=== PATIENT | male | born 1965 | race Two or more races ===

== ENCOUNTER 2016-07-13 17:03 | Emergency (ER) | payer MEDICAID, OTHER ==
[~2016-07-13] VITALS: Ht 157.5 cm; Wt 96.5 kg
[2016-07-13 17:44] VITALS: Ht 157.5 cm; Wt 96.5 kg
[2016-07-13] MEDS ORDERED: PRED20TA PO (17:55)
[2016-07-13] MEDS ORDERED: ALBU8.5H3 INH (17:55)
[2016-07-13] MEDS ORDERED: UDROBDM PO (17:55)
--- NOTE | 2016-07-13 17:57 | ERD ---
ER Documentation Chief Complaint Date/Time DATE: 07/13/16 TIME: 17:56 Chief Complaint COUGH X 3 DAYS HPI 51-year-old male comes in with a cough, sore throat 3 days. He has a history of asthma and does not require medications regularly. He has not had any fever , chills, shortness of breath. ROS All systems reviewed and are negative except as per history of present illness. Medications Home Meds Active Scripts Guaifenesin-Dextromethorphan* (Robitussin* DM) 100MG/10MG/5ML Syrup, 5 ML PO Q4H Y for COUGH, #4 OZ Prov:ASHOK FALK PA-C 07/13/16 Albuterol Sulfate* (Proair HFA*) 8.5 Gm Hfa.aer.ad, 2 PUFF INH Q4, #1 INHALER Prov:ASHOK FALK PA-C 07/13/16 Prednisone* (Prednisone*) 20 Mg Tab, 40 MG PO DAILY for 5 Days, TAB Prov:ASHOK FALK PA-C 07/13/16 Allergies Allergies: Coded Allergies: Penicillins (Verified Allergy, Unknown, 07/13/16) PMhx/Soc Medical and Surgical Hx: pt denies Surgical Hx Hx Respiratory Disorders: Yes (Asthma) Hx Substance Use: No Hx Tobacco Use: No Smoking Status: Current every day smoker Physical Exam Vitals Vital Signs Date Time Temp Pulse Resp B/P Pulse Ox O2 Delivery O2 Flow Rate FiO2 07/13/16 17:44 98.7 78 18 140/74 99 Physical Exam General: Well-developed, well-nourished. The patient appears in no acute distress. HEENT: Head is normocephalic, atraumatic. No scleral icterus. Pupils are equal , round, and reactive. Oral mucous membranes are moist. No pharyngeal erythema. Neck: Supple. Nontender. Lungs: Clear to auscultation. Normal air movement. Heart: Regular rate and rhythm. S1 and S2 are normal. No murmurs, gallops, or rubs. Abdomen: Soft, nontender, nondistended. Bowel sounds are normoactive. Extremities: No clubbing or cyanosis. Normal pulses. Moving extremities x 4. No weakness. Neurologic: Alert and oriented 3. No focal deficits. Skin: Normal turgor. No rash or lesions. Procedures/MDM The patient is a 51-year-old male who comes in with an acute upper respiratory infection, presumed viral. No active asthma symptoms. The patient has a differential diagnosis of a viral upper respiratory infection, bacterial upper respiratory infection, bronchitis, pneumonia, pharyngitis, laryngitis, epiglottitis, croup, pneumonia. Patient has a normal pulmonary examination, clear breath sounds, normal pulse oximetry, with no corrective measures needed at this time. Fluids, rest, antipyretics were encouraged. Smoking Cessation Therapy: Pt. was lectured for greater than 3 minutes on the health risks of continued smoking and the benefits of cessation. Departure Diagnosis: Primary Impression: Asthma Additional Impression: URI (upper respiratory infection) Condition: Good Patient Instructions: Asthma, Uri, Viral, No Abx (Adult) Referrals: [facility] YOU HAVE RECEIVED A MEDICAL SCREENING EXAM AND THE RESULTS INDICATE THAT YOU DO NOT HAVE A CONDITION THAT REQUIRES URGENT TREATMENT IN THE EMERGENCY DEPARTMENT. FURTHER EVALUATION AND TREATMENT OF YOUR CONDITION CAN WAIT UNTIL YOU ARE SEEN IN YOUR DOCTORS OFFICE WITHIN THE NEXT 1-2 DAYS. IT IS YOUR RESPONSIBILITY TO MAKE AN APPOINTMENT FOR FOLOW-UP CARE. IF YOU HAVE A PRIMARY DOCTOR --you should call your primary doctor and schedule an appointment IF YOU DO NOT HAVE A PRIMARY DOCTOR YOU CAN CALL OUR PHYSICIAN REFERRAL HOTLINE AT IF YOU CAN NOT AFFORD TO SEE A PHYSICIAN YOU CAN CHOSE FROM THE FOLLOWING [facility] [address] [facility]. [facility] [address] [facility]. [facility] [address] [facility] [address] [facility]. [facility] [address] [facility]. [facility]. [address] [facility]. [facility] YOU HAVE RECEIVED A MEDICAL SCREENING EXAM AND THE RESULTS INDICATE THAT YOU DO NOT HAVE A CONDITION THAT REQUIRES URGENT TREATMENT IN THE EMERGENCY DEPARTMENT. FURTHER EVALUATION AND TREATMENT OF YOUR CONDITION CAN WAIT UNTIL YOU ARE SEEN IN YOUR DOCTORS OFFICE WITHIN THE NEXT 1-2 DAYS. IT IS YOUR RESPONSIBILITY TO MAKE AN APPOINTMENT FOR FOLOW-UP CARE. IF YOU HAVE A PRIMARY DOCTOR --you should call your primary doctor and schedule and appointment IF YOU DO NOT HAVE A PRIMARY DOCTOR YOU CAN CALL OUR PHYSICIAN REFERRAL HOTLINE AT . IF YOU CAN NOT AFFORD TO SEE A PHYSICIAN YOU CAN CHOSE FROM THE FOLLOWING [facility] INSTITUTIONS: [facility] [address] [place] [address] [facility] [address] [place], [place] [id number] [place] [address] [address] [place] [address] [facility]SPECIALTIES Additional Instructions: Llame al doctor MAANA y beni hector BRAIN PARA DENTRO DE 1-2 ARMIJO.Dgale a la secretaria que nosotros le instruimos hacer esta brain.Avise o llame si allred condicin se empeora antes de la brain. Regresa aqui si peor o no mejor. ASHOK FALK PA-C Jul 13, 2016 17:57
== END 2016-07-13 18:58 | disposition home or self-care (01) ==
LOC: E/R 17:03
DX: J45.901 Unspecified asthma with (acute) exacerbation (principal); J06.9 Acute upper respiratory infection, unspecified; F17.210 Nicotine dependence, cigarettes, uncomplicated
CPT/HCPCS: 99284

== ENCOUNTER 2017-01-03 04:57 | Emergency (ER) | payer OTHER ==
[~2017-01-03] VITALS: Ht 167.6 cm; Wt 94.0 kg
[~2017-01-03 04:57] MED LIST: ALBU8.5H3 INH; PRED20TA PO; UDROBDM PO
[2017-01-03 05:05] VITALS: Ht 167.6 cm; Wt 94.0 kg
--- NOTE | 2017-01-03 05:33 | ERD ---
ER Documentation Chief Complaint Date/Time DATE: 01/03/17 TIME: 05:27 Chief Complaint c/o sore throat with fever x 2 days. HPI This 51-year-old male patient presents to emergency department with sore throat and fever worsening over the last 2 days. Patient reports symptoms started 5 days ago with nasal congestion, sinus headache, fever and sore throat., patient reports he feels worse today than he did 5 days ago. Patient is able to eat and drink reports decreased appetite pain with swallowing, reports ear pain, body aches and chills. Patient denies shortness of breath but reports history of asthma and is requesting refill of his albuterol inhaler. ROS All systems reviewed and are negative except as per history of present illness. Medications Home Meds Active Scripts Guaifenesin-Dextromethorphan* (Robitussin* DM) 100MG/10MG/5ML Syrup, 5 ML PO Q4H Y for COUGH, #4 OZ Prov:ASHOK FALK PA-C 07/13/16 Albuterol Sulfate* (Proair HFA*) 8.5 Gm Hfa.aer.ad, 2 PUFF INH Q4, #1 INHALER Prov:ASHOK FALK PA-C 07/13/16 Prednisone* (Prednisone*) 20 Mg Tab, 40 MG PO DAILY for 5 Days, TAB Prov:ASHOK FALK PA-C 07/13/16 Allergies Allergies: Coded Allergies: Penicillins (Verified Allergy, Unknown, 07/13/16) PMhx/Soc Hx Respiratory Disorders: Yes (Asthma) Hx Alcohol Use: Yes (SOCIALLY) Hx Substance Use: No Hx Tobacco Use: Yes Smoking Status: Current some day smoker Physical Exam Vitals Vital Signs Date Time Temp Pulse Resp B/P Pulse Ox O2 Delivery O2 Flow Rate FiO2 01/03/17 05:05 99.8 78 20 144/83 98 Vitals stable, triage notes reviewed Physical Exam Const: Well-appearing well-nourished, well-hydrated, no acute distress Head: Atraumatic Eyes: Normal Conjunctiva, PERRLA, EOMI ENT: Right tympanic membrane is erythemic and retracted, left tympanic membrane translucent, nasal mucosa is edematous, pharynx is inflamed, raw, uvula rises and falls with pronation, palpable maxillary and frontal sinus tenderness on right. Patient reports pressure behind eyes when leaning forward. Neck: Full range of motion..~ No meningismus. Resp: Clear to auscultation bilaterally, diminished bases no wheezing auscultated Cardio: Abd: Skin: No petechiae or rashes Back: Ext: Neur: Awake and alert Psych: Normal Mood and Affect Procedures/MDM This 51-year-old male patient presents to the emergency department for 5 day history of sore throat, nasal congestion patient reports feeling worse now than he did 5 days ago also is requesting refill of albuterol inhaler. Centor score is 1 low suspicion for strep pharyngitis. Tonsillar abscess or infectious mononucleosis. Patient's physical exam findings are consistent with a right- sided maxillary sinusitis. Patient will be discharged home on Biaxin, patient reports penicillin allergy. Refill of albuterol 2 puffs every 4 hours as needed cough or wheeze. I feel the patient is stable for discharge at this time. I have discussed results, examination findings, the treatment plan with the patient and family present prior to discharge. Indications for emergent reevaluation, side effects of medication were also discussed. All questions were answered. Patient verbalizes understanding and agrees with plan of care. Departure Diagnosis: Primary Impression: Sinusitis, acute maxillary Recurrence: not specified as recurrent Qualified Code: J01.00 - Acute maxillary sinusitis, recurrence not specified Additional Impression: Sore throat Condition: Good Patient Instructions: Acute Sinusitis, Self-Care for Sore Throats Additional Instructions: Thank you for for coming to [facility] for your care today. Please ask your nurse or provider if you have questions about your care today and do not leave until all your questions have been answered. Please use any medications given as directed and follow-up with your doctor (or the doctor you were referred to) in the next 2-3 days. If you do not have a primary care doctor you [place] [facility] [place] You may also use motrin and tylenol as needed for fever and/or pain unless instructed otherwise by your provider or nurse. Indications for more urgent follow-up have been discussed, but you may return to the Emergency Department at ANY time for any worrisome or worsening symptoms. If you have abdominal pain, please know that no test or exam you received is perfect and you should follow up within 8 hours for continued pain. If you had any imaging studies today, such as an X-Ray or CT Scan, these studies will be reviewed later by a radiologist. You will be called if there are important findings that were not identified today, so make sure the contact information you provided at registration is correct. If you received any narcotic pain control medicine today, such as Vicodin, Morphine or Dilaudid, your coordination and judgment may be affected for a number of hours. Please do not drive or operate heavy machinery, and you may want someone to assist you at home. If you were given a prescription for narcotic medication, be aware that it is very addictive- use sparingly and only if necessary. NICOLA VALIENTE Jan 03, 2017 05:33
[2017-01-03] MEDS ORDERED: INHA1SPA53 MC (05:34)
[2017-01-03] MEDS ORDERED: IBUP400T22 PO (05:36)
[2017-01-03] MEDS ORDERED: CLAR500T PO (05:36)
[2017-01-03] MEDS ORDERED: ALBU18HF INHALATION (05:37)
== END 2017-01-03 05:48 | disposition home or self-care (01) ==
LOC: FTE 04:57
DX: J01.00 Acute maxillary sinusitis, unspecified (principal); J45.909 Unspecified asthma, uncomplicated; F17.210 Nicotine dependence, cigarettes, uncomplicated
CPT/HCPCS: 99284

== ENCOUNTER 2017-07-05 10:02 | Emergency (ER) | END 2017-07-05 11:35 | disposition home or self-care (01) ==

== ENCOUNTER 2018-01-19 13:08 | Emergency (ER) | END 2018-01-19 15:38 | disposition home or self-care (01) ==

== ENCOUNTER 2018-04-15 17:40 | Emergency (ER) | END 2018-04-15 19:24 | disposition home or self-care (01) ==

== ENCOUNTER 2018-10-18 10:15 | Emergency (ER) | payer OTHER ==
[~2018-10-18] VITALS: Ht 165.1 cm; Wt 99.1 kg
[~2018-10-18 10:15] MED LIST changes: -ALBU8.5H3 INH; +IBUP800T48 PO; +LISI10TA2 PO; -PRED20TA PO; +TERA2CAP3 PO; -UDROBDM PO
[2018-10-18 10:18] VITALS: BP 149/91; PULSE 70; RESP 19; Ht 165.1 cm; Wt 99.1 kg
[2018-10-18] MEDS ORDERED: KETOROLAC 60 MG INJ IM STA (11:04)
[2018-10-18] MEDS ORDERED: ACET500C5 PO (13:00)
[2018-10-18] MEDS ORDERED: DOXY100T20 PO (13:00)
--- NOTE | 2018-10-18 13:07 | ERD ---
ER Documentation Chief Complaint Chief Complaint SWELLING/PAIN @ RIGHT FOOT - STUNG BY AN ANIMAL (?) HPI 53-year-old male patient with no significant past medical history resents to ED complaining of right foot injury due to a manta ray bite on October 03, 2018 [place] in [facility]. Denies any chest pain, shortness breath, nausea, vomiting, diarrhea, neck stiffness. Patient also reports that he has some dysuria that started about 1 month ago and reports that he has some left testicular pain. States that he has a left epididymal cyst. Denies any penile discharge. ROS All systems reviewed and are negative except as per history of present illness. Medications Home Meds Active Scripts Acetaminophen* (Tylophen*) 500 Mg Capsule, 1 CAP PO Q6H PRN for PAIN AND OR ELEVATED TEMP, #20 CAP Prov:GREG BRUNSON PA-C 10/18/18 Doxycycline Hyclate* (Doxycycline Hyclate*) 100 Mg Tablet.dr, 100 MG PO BID for 10 Days, TAB Prov:GREG BRUNSON PA-C 10/18/18 Ibuprofen* (Motrin*) 800 Mg Tab, 800 MG PO Q6H PRN for PAIN AND OR ELEVATED TEMP, #30 TAB Prov:RANDALL TOSCANO MD 04/15/18 Reported Medications Lisinopril* (Lisinopril*) 10 Mg Tablet, 10 MG PO DAILY, #30 TAB 04/15/18 Terazosin Hcl* (Terazosin Hcl*) 2 Mg Capsule, 2 MG PO HS, CAP 04/15/18 Allergies Allergies: Coded Allergies: Penicillins (Verified Allergy, Unknown, 04/15/18) PMhx/Soc Medical and Surgical Hx: pt denies Surgical Hx History of Surgery: No Anesthesia Reaction: No Hx Neurological Disorder: No Hx Respiratory Disorders: Yes (Asthma) Hx Cardiac Disorders: No Hx Psychiatric Problems: No Hx Miscellaneous Medical Probl: No Hx Alcohol Use: Yes (SOCIALLY) Hx Substance Use: No Hx Tobacco Use: Yes Smoking Status: Current some day smoker FmHx Family History: No diabetes Physical Exam Vitals Vital Signs Date Temp Pulse Resp B/P (MAP) Pulse Ox O2 O2 Flow FiO2 Time Delivery Rate 10/18/18 99.1 70 19 149/91 98 10:18 (110) Physical Exam Const: [id number], well-nourished. In no acute distress. Head: Atraumatic, normocephalic Eyes: Normal Conjunctiva without injection. No purulent discharge. PERRLA. EOMI ENT: Normal external ear. Ear canal without erythema. Tympanic membrane pearly cruz without effusion or bulging. Nasal canal clear with normal turbinates. Moist oropharynx without tonsillar exudates. Non-erythematous pharynx. Uvula midline. No drooling. No trismus. Neck: No cervical midline tenderness. Full range of motion. No meningismus. No cervical lymphadenopathy. No JVD. Resp: Clear to auscultation bilaterally. No wheezing, rhonchi, rales, or crackles. No accessory muscle use. No retractions. Cardio: Regular rate and rhythm. No murmurs, rubs or gallops. Abd: Soft, non tender, non distended. Normal bowel sounds. No palpable masses. No rebound tenderness. No guarding. Negative McBurney's Point. Negative Ly's Sign. : Noncircumcised penis. No discharge. Left scrotal tenderness. No warmth to touch. No erythema. No phimosis, paraphimosis. Skin: Normal skin turgor. No petechiae or rashes Back: No midline tenderness. No CVA tenderness. Ext: No cyanosis, or edema. Distal pulses intact bilaterally. Dorsal aspect of patient's left foot with no erythema, edema. No fluctuance or induration. Full range of motion of the IP, MTP joints bilaterally. Neur: Awake and alert. Normal gait. Normal coordination. Cranial Nerves II- VII intact. Normal finger to nose. Muscle strength 5/5. Sensation intact. Psych: Normal Mood and Affect Results 24 hrs Laboratory Tests Test 10/18/18 11:15 Urine Color STRAW Urine Clarity CLEAR Urine pH 6.0 Urine Specific [place] 1.012 Urine Ketones NEGATIVE mg/dL Urine Nitrite NEGATIVE mg/dL Urine Bilirubin NEGATIVE mg/dL Urine Urobilinogen NEGATIVE mg/dL Urine Leukocyte Esterase NEGATIVE Johanna/ul Urine Hemoglobin NEGATIVE mg/dL Urine Glucose NEGATIVE mg/dL Urine Total Protein NEGATIVE mg/dl Current Medications Medications Dose Sig/Hayley Start Time Status Last (Trade) Ordered Route PRN Stop Time Admin Dose Reason Admin Ketorolac 60 mg ONCE STAT 10/18/18 DC 10/18/18 Tromethamine IM 11:04 10/18/18 11:15 (Toradol) 11:07 Procedures/MDM 53-year-old male patient with no significant past medical history presents ED complaining of his right foot being stung by a Manta Ray on October 03, 2018. States that he also has dysuria that started about 1 month ago. Patient is afebrile and nontoxic-appearing. Patient was further worked up UA, urine culture. Patient's pain and symptoms have improved after treatment with 60 mg IM Toradol. Patient will be given Doxycycline for coverage of Vibrio species for seawater exposure. Low suspicion for deep space infection, cellulitis, retained foreign bodies, fracture, dislocation, osteomyelitis, septic arthritis or other emergent conditions. Low suspicion for testicular torsion, cholecystitis, choledocholithiasis, cholangitis, pancreatitis, appendicitis, bowel obstruction, ileus, volvulus, nephrolithiasis, pyelonephritis, hepatitis, perforated viscus, diverticulitis, abdominal hernia, acute abdomen, mesenteric ischemia or other emergent conditions. Pending urine culture. Patient was discussed with my supervising sister, Dr. Mcgarry who agreed with the management and discharge plan. Diagnosis: Animal bite of foot, Scrotal cyst Discharge medications: Doxycycline, Tylenol Follow up with primary care physician in 1-2 days for referral to see a urologist. Instructed patient to return to the ED sooner for any worsening symptoms. Patient's questions were answered. Patient is hemodynamically stable. Patient understood and agreed with discharge plan. Patient discharged stable. Disclaimer: Inadvertent spelling and grammatical errors are likely due to EHR/dictation software use and do not reflect on the overall quality of patient care. Also, please note that the electronic time recorded on this note does not necessarily reflect the actual time of the patient encounter. Departure Diagnosis: Primary Impression: Animal bite of foot Encounter type: initial encounter Laterality: right Qualified Codes: S91 .351A - Open bite, right foot, initial encounter Additional Impression: Scrotal cyst Condition: Stable Patient Instructions: Testicular Self-Exam (LACIE), Marine Bites and Stings Referrals: [facility] YOU HAVE RECEIVED A MEDICAL SCREENING EXAM AND THE RESULTS INDICATE THAT YOU DO NOT HAVE A CONDITION THAT REQUIRES URGENT TREATMENT IN THE EMERGENCY DEPARTMENT. FURTHER EVALUATION AND TREATMENT OF YOUR CONDITION CAN WAIT UNTIL YOU ARE SEEN IN YOUR DOCTORS OFFICE WITHIN THE NEXT 1-2 DAYS. IT IS YOUR RESPONSIBILITY TO MAKE AN APPOINTMENT FOR FOLOW-UP CARE. IF YOU HAVE A PRIMARY DOCTOR --you should call your primary doctor and schedule an appointment IF YOU DO NOT HAVE A PRIMARY DOCTOR YOU CAN CALL OUR PHYSICIAN REFERRAL HOTLINE AT IF YOU CAN NOT AFFORD TO SEE A PHYSICIAN YOU CAN CHOSE FROM THE FOLLOWING [facility] [address] [facility] [address] [facility] [address] [facility] [address] [facility] [address] [facility]. [facility] [address] [facility]. [facility] YOU HAVE RECEIVED A MEDICAL SCREENING EXAM AND THE RESULTS INDICATE THAT YOU DO NOT HAVE A CONDITION THAT REQUIRES URGENT TREATMENT IN THE EMERGENCY DEPARTMENT. FURTHER EVALUATION AND TREATMENT OF YOUR CONDITION CAN WAIT UNTIL YOU ARE SEEN IN YOUR DOCTORS OFFICE WITHIN THE NEXT 1-2 DAYS. IT IS YOUR RESPONSIBILITY TO MAKE AN APPOINTMENT FOR FOLOW-UP CARE. IF YOU HAVE A PRIMARY DOCTOR --you should call your primary doctor and schedule and appointment IF YOU DO NOT HAVE A PRIMARY DOCTOR YOU CAN CALL OUR PHYSICIAN REFERRAL HOTLINE AT . IF YOU CAN NOT AFFORD TO SEE A PHYSICIAN YOU CAN CHOSE FROM THE FOLLOWING [facility]: [facility] [address] [place] [address] [facility] [address] [place] [address] [facility] [address] [place] [address] [facility] C[facility]/SPECIALTIES Additional Instructions: Call your primary care doctor TOMORROW for an appointment during the next 2-3 days for a referral to see a urologist.See the doctor sooner or return here if your condition worsens before your appointment time. GREG BRUNSON PA-C October 18, 2018 13:07
== END 2018-10-18 13:08 | disposition home or self-care (01) ==
LOC: FTE 10:15
DX: S91.351A Open bite, right foot, initial encounter (principal); L72.9 Follicular cyst of the skin and subcutaneous tissue, unspecified; J45.909 Unspecified asthma, uncomplicated; F17.210 Nicotine dependence, cigarettes, uncomplicated; R30.0 Dysuria; W56.81XA Bitten by other nonvenomous marine animals, initial encounter; Y92.832 Beach as the place of occurrence of the external cause
CPT/HCPCS: 76870; 81003; 87086; J1885; 96372